=== PATIENT | female | born 1970 | race Caucasian/White ===

== ENCOUNTER 2016-03-28 09:02 | Emergency (ER) | payer OTHER ==
[2016-03-28 09:17] VITALS: BP 132/74; PULSE 75; RESP 16; TEMP 98.1; O2SAT 97
[2016-03-28 09:26] LABS: COLOR YELLOW; LEUKOCYTE ESTERASE,URINE 2+ (NEGATIVE); NITRITE,URINE NEGATIVE (NEGATIVE); PH,URINE 5.5 (5.0-7.5)
[2016-03-28 09:42] LABS: BACTERIA 2+ /hpf (NONE SEEN); WBC,URINE 25-50 /hpf (0-3)
--- NOTE | 2016-03-28 09:57 | UCPHY ---
H & P Patient Type: Established Chief Complaint Nursing Narrative: DYSURIA AND FREQUENCY WITH URINATION SINCE LAST WED. DENIES FEVER OR FLANK PAIN. Time Seen by Provider: 03/28/16 09:31 HPI/ROS: CHIEF COMPLAINT: Pain with urination HISTORY OF PRESENT ILLNESS: This is a 45-year-old female with 4 days of dysuria and urinary urgency. She denies fever. She does not have urinary frequency. She does not have flank or back pain. She does not have abdominal pain. She has had an upper respiratory infection that is on the wane. REVIEW OF SYSTEMS: A ten point review of systems was performed and is negative with the exception of the items mentioned in the HPI. Source: Patient Exam Limitations: No limitations - Personal History LMP (Females 10-55): 1-7 Days Ago - Medical/Surgical History Hx Asthma: Yes Hx Chronic Respiratory Disease: No Hx Diabetes: No Hx Cardiac Disease: No Hx Renal Disease: No Hx Cirrhosis: No Hx Alcoholism: No Hx HIV/AIDS: No Hx Splenectomy or Spleen Trauma: No Other PMH: Left oophorectomy for cyst - Family History Significant Family History: No pertinent family hx - Social History Smoking Status: Never smoked Additional Social History: She works as a integration project manager. - Physical Exam Exam: General Appearance: Alert. Vital signs reviewed. Blood pressure 132/74. Eyes: Pupils equal and round, no conjunctival injection, no discharge. Anicteric. ENT, Mouth: Mucous membranes are moist, no oropharyngeal erythema or edema. Respiratory: Lungs are clear to auscultation; no wheezes, rales, or rhonchi. Cardiovascular: Regular rate and rhythm; no murmur, rub, or gallop. Gastrointestinal: Abdomen is soft with mild tenderness in the suprapubic region , no guarding, no masses or organomegaly, bowel sounds normal. Skin: Warm and dry, no rashes on exposed skin, normal color. Back: Nontender to palpation over the thoracolumbar spine. No CVAT. Neurological: Alert and oriented. Moving all four extremities easily and equally. Psychiatric: Normal affect. Constitutional: Initial Vital Signs Temperature (C) 36.7 C 03/28/16 09:10 Heart Rate 75 03/28/16 09:10 Respiratory Rate 16 03/28/16 09:10 Blood Pressure 132/74 H 03/28/16 09:10 O2 Sat (%) 97 03/28/16 09:10 O2 Delivery Mode Room Air Allergies/Adverse Reactions: codeine [Codeine] Allergy (Verified 01/19/14 07:46) wheat [Wheat] Allergy (Verified 01/19/14 07:46) Home Medications: Medication Instructions Recorded Bcp Unk Dose 03/28/16 Cephalexin [Keflex] 500 mg PO BID #10 cap 03/28/16 Medical Decision Making ED Course/Re-evaluation: Clean-catch urine is positive for red blood cells, white blood cells, bacteria, and leukocyte esterase. I believe that this is consistent with a diagnosis of urinary tract infection. She does not have evidence of pyelonephritis--no fever or flank pain. She is taking control pills. Her pregnancies were the result of in vitro fertilization. She is certain that she is not and I do not suspect ectopic . She is being started on Keflex 500 mg twice daily for 5 days. She is also going to take [id number] Azo. Her main complaint is of dysuria. I do not suspect ovarian torsion or cyst. - Data Points Laboratory Results: 03/28/16 09:20 Urine Color YELLOW Urine Appearance HAZY Urine pH 5.5 (5.0-7.5) Ur Specific [place] <= 1.005 (1.002-1.030) Urine Protein NEGATIVE (NEGATIVE) Urine Ketones NEGATIVE (NEGATIVE) Urine Blood 2+ H (NEGATIVE) Urine Nitrate NEGATIVE (NEGATIVE) Urine Bilirubin NEGATIVE (NEGATIVE) Urine Urobilinogen 0.2 EU (0.2-1.0) Ur Leukocyte Esterase 2+ H (NEGATIVE) Urine RBC 5-10 H /hpf (0-3) Urine WBC 25-50 H /hpf (0-3) Ur Epithelial Cells 1+ /lpf (NONE-1+) Urine Bacteria 2+ H /hpf (NONE SEEN) Urine Glucose NEGATIVE (NEGATIVE) Departure - Departure Disposition: Home, Routine, Self-Care Clinical Impression: Urinary tract infection Qualifiers: Qualifier Code: (N30.00) Acute cystitis without hematuria Condition: Good Instructions: Urinary Tract Infection in Women (ED) Additional Instructions: Drink lots of fluids. Begin the Keflex 500 mg twice daily. You should take this until it is gone--5 days. By some Azo when you are at the pharmacy to treat the burning when you urinate. If you develop fever, flank or back pain, severe abdominal pain, vomiting, any new or concerning symptoms--you should be re-evaluated. Referrals: Rosi Mckenzie MD [Primary Care Provider] - As per Instructions Prescriptions: Cephalexin [Keflex] 500 mg PO BID #10 cap - PQRS PQRS Measurement: Does not apply.
== END 2016-03-28 10:20 | disposition home or self-care (01) ==
LOC: CED 09:02
DX: N39.0 Urinary tract infection, site not specified (principal)
CPT/HCPCS: 81003-PO; 81015-PO; 99214-PO

== ENCOUNTER → 2016-12-05 | Outpatient (CLI) | payer OTHER | LOC: CIMAGING 12:17 | PROVIDERS: ATTEND Internal Medicine | DX: Z12.31 Encounter for screening mammogram for malignant neoplasm of breast (principal) | CPT/HCPCS: G0202 ==